=== PATIENT | male | born 1990 | race Caucasian/White ===

== ENCOUNTER 2022-11-15 13:38 | Inpatient (IN) | payer MEDICAID ==
[~2022-11-15] VITALS: Ht 172.7 cm; Wt 74.2 kg
[2022-11-15 13:40] VITALS: BP_SYST 143
[2022-11-15] MEDS ORDERED: NACL 0.9% 1,000 ML IV ONE ×2 (14:15→14:45)
[2022-11-15] MEDS ORDERED: ONDANSETRON HCL 4 MG/2 ML VIAL IVP ONE (14:15)
[2022-11-15] MEDS ORDERED: NALOXONE HCL 2 MG/2 ML SYR IVP ONE (14:15)
[2022-11-15 15:22] LABS: BASOPHILS % (AUTO) 0.4 % (0.0-2.0); EOSINOPHILS % (AUTO) 0.2 % (0.0-4.0); HEMATOCRIT 42.3 % (36-54); HEMOGLOBIN 14.2 g/dL (14.0-18.0); LYMPHOCYTES % (AUTO) 8.7 % (20.5-51.5); MEAN CORPUSCULAR HEMOGLOBIN 30 pg (27-31); MEAN CORPUSCULAR HGB CONC 34 % (32-36); MEAN CORPUSCULAR VOLUME 88 fL (79.0-98.0); MONOCYTES # (AUTO) 0.5 K/uL (0.0-1.0); MONOCYTES % (AUTO) 4.2 % (1.7-9.3); NEUTROPHILS # (AUTO) 9.9 K/uL (1.8-7.7); NEUTROPHILS % (AUTO) 86.5 % (40.0-70.0); PLATELET COUNT (AUTO) 256 K/uL (130-430); RED BLOOD CELL COUNT(AUTO) 4.81 MIL/uL (4.2-6.2); RED CELL DISTRIBUTION WIDTH 13.5 % (9.0-15.0); WHITE BLOOD COUNT (AUTO) 11.4 K/uL (4.8-10.8)
[2022-11-15 15:33] LABS: ANION GAP 9 (5-15); CALCIUM 7.9 mg/dL (8.4-11.0); CHLORIDE 105 mmol/L (98-107); CREATININE 0.89 mg/dL (0.55-1.30); GFR AFRICAN AMERICAN 128 mL/min (>90); GLUCOSE 168 mg/dL (70-99); UREA NITROGEN, BLOOD 19 mg/dL (8-21)
[2022-11-15 15:40] LABS: ACETAMINOPHEN < 1 ug/mL (1-30); ALANINE AMINOTRANSFERASE 33 U/L (12-78); ALBUMIN 3.6 g/dL (3.4-4.8); ALCOHOL, BLOOD < 3 mg/dL (<10); ASPARTATE AMINOTRANSFERASE 28 U/L (10-37); TOTAL BILIRUBIN 0.3 mg/dL (0.0-1.0)
[2022-11-15 16:52] LABS: BARBITURATE, URINE NEGATIVE (NEG <=200); BENZODIAZEPINE, URINE NEGATIVE (NEG <=150); CANNABINOID, URINE NEGATIVE (NEG <=50); COCAINE, URINE NEGATIVE (NEG <=150); METHAMPHETAMINES SCREEN,URINE POSITIVE (NEG <=500); PHENCYCLIDINE SCREEN,URINE NEGATIVE (NEG <=25); URINE AMPHETAMINE NEGATIVE (NEG <=500); URINE METHADONE NEGATIVE (NEG <=200)
[2022-11-15 16:53] LABS: OPIATE, URINE NEGATIVE (NEG <=100); UR TRICYCLIC ANTIDEPRESSANTS NEGATIVE (NEG <=300); URINE OXYCODONE SCREEN NEGATIVE (NEG <=100); URINE PROPOXYPHENE SCREEN NEGATIVE (NEG <=300)
[2022-11-15] MEDS ORDERED: AMMONIA 1 EA TOWELETTE INH ONE (18:25)
[2022-11-15] MEDS ORDERED: LORazepam 2 MG/ML VIAL IVP ONE (18:30)
[2022-11-15] MEDS ORDERED: LABETALOL HCL 20 MG/4 ML CARTRIDGE IVP ONE ×2 (18:30→18:31)
[2022-11-15 23:26] VITALS: BP_SYST 127
[2022-11-15] MEDS ORDERED: ACETAMINOPHEN 325 MG TABLET PO PRN (23:45)
[2022-11-15] MEDS ORDERED: LORazepam 2 MG/ML VIAL IVP PRN (23:45)
[2022-11-15] MEDS ORDERED: ONDANSETRON HCL 4 MG/2 ML VIAL IVP PRN (23:45)
[2022-11-15] MEDS ORDERED: HYDROcodone/ACETAMIN 5-325 MG TAB (NORCO/ VICODIN) PO PRN (23:45)
[2022-11-15] MEDS ORDERED: NALOXONE HCL 0.4 MG/ML AMP (NARCAN) IVP PRN ×2 (23:45)
[2022-11-15] MEDS ORDERED: HYDROcodone/ACETAMIN 10-325 MG TAB PO PRN (23:45)
[2022-11-16 01:16] VITALS: BP_SYST 129
[2022-11-16] MEDS: NORMAL SALINE 5 ML DISP.SYRIN IVF SCH ×6 (06:00→22:35)
[2022-11-16 08:00] VITALS: BP_SYST 118
[2022-11-16 08:04] LABS: BASOPHILS % (AUTO) 0.2 % (0.0-2.0); EOSINOPHILS % (AUTO) 0.1 % (0.0-4.0); HEMATOCRIT 41.3 % (36-54); HEMOGLOBIN 13.6 g/dL (14.0-18.0); LYMPHOCYTES # (AUTO) 1.6 K/uL (1.0-5.5); LYMPHOCYTES % (AUTO) 8.7 % (20.5-51.5); MEAN CORPUSCULAR HEMOGLOBIN 29 pg (27-31); MEAN CORPUSCULAR HGB CONC 33 % (32-36); MEAN CORPUSCULAR VOLUME 89 fL (79.0-98.0); MONOCYTES % (AUTO) 5.4 % (1.7-9.3); NEUTROPHILS # (AUTO) 16.2 K/uL (1.8-7.7); NEUTROPHILS % (AUTO) 85.6 % (40.0-70.0); PLATELET COUNT (AUTO) 218 K/uL (130-430); RED BLOOD CELL COUNT(AUTO) 4.62 MIL/uL (4.2-6.2); RED CELL DISTRIBUTION WIDTH 13.6 % (9.0-15.0)
[2022-11-16 08:15] LABS: WHITE BLOOD COUNT (AUTO) 18.9 K/uL (4.8-10.8)
[2022-11-16 08:30] LABS: ALBUMIN 3.3 g/dL (3.4-4.8); CALCIUM 8.1 mg/dL (8.4-11.0); CREATININE 0.75 mg/dL (0.55-1.30); THYROID STIMULATING HORMONE 0.58 uIu/mL (0.34-4.82); TOTAL BILIRUBIN 1.2 mg/dL (0.0-1.0)
[2022-11-16 12:00] VITALS: BP_SYST 113
[2022-11-16 16:00] VITALS: BP_SYST 115
[2022-11-16 20:00] VITALS: BP_SYST 111
[2022-11-16 23:30] VITALS: BP_SYST 129
[2022-11-17] MEDS: NORMAL SALINE 5 ML DISP.SYRIN IVF SCH ×2 (06:00→06:51)
[2022-11-17 08:11] VITALS: BP_SYST 112
[2022-11-17 12:47] VITALS: BP_SYST 118
[2022-11-17 14:14] VITALS: BP_SYST 118
== END 2022-11-17 15:49 | disposition home or self-care (01) | DRG 812 ==
LOC: SED 13:38 → STU 21:24 → EDBD 21:24 → STU 22:24
PROVIDERS: ADMIT Preventive Medicine Preventive Medicine/Occupational Environmental Medicine; ATTEND Preventive Medicine Preventive Medicine/Occupational Environmental Medicine
DX: T43.651A Poisoning by methamphetamines accidental (unintentional), initial encounter (principal); G92.8 Other toxic encephalopathy; I42.6 Alcoholic cardiomyopathy; R65.10 Systemic inflammatory response syndrome (SIRS) of non-infectious origin without acute organ dysfunction; E83.51 Hypocalcemia; T51.0X1A Toxic effect of ethanol, accidental (unintentional), initial encounter; E80.6 Other disorders of bilirubin metabolism; Z20.822 Contact with and (suspected) exposure to COVID-19; R77.8 Other specified abnormalities of plasma proteins; F10.129 Alcohol abuse with intoxication, unspecified; Y92.89 Other specified places as the place of occurrence of the external cause; R73.9 Hyperglycemia, unspecified; Y92.9 Unspecified place or not applicable; Y90.0 Blood alcohol level of less than 20 mg/100 ml
CPT/HCPCS: 36415; 80053; 80061; 80307; 83735; 84100; 84443; 84484; 85025; 93005; 93306; 96361; 96374; 96375; 99291; G0378; G0480; G0482; J2060; J2310; J2405; J7030